=== PATIENT | male | born 1935 | race Caucasian/White ===

== ENCOUNTER → 2020-11-10 10:59 | Outpatient (BNVA) | payer MEDICARE, SELFPAY | PROVIDERS: Family Provider Family Medicine; PCP Family Medicine; Visit Provider Family Medicine | DX: S39.012A Strain of muscle, fascia and tendon of lower back, initial encounter (principal); M51.36 Other intervertebral disc degeneration, lumbar region; M43.16 Spondylolisthesis, lumbar region; S22.080A Wedge compression fracture of T11-T12 vertebra, initial encounter for closed fracture | CPT/HCPCS: 72100 ==